=== PATIENT | female | born 1980 | race American Indian/Alaskan Native ===

== ENCOUNTER 2019-05-28 00:14 | Emergency (ER) | payer OTHER ==
[~2019-05-28] VITALS: Ht 157.5 cm; Wt 47.6 kg
[~2019-05-28 00:14] MED LIST: Procardia 10MG CAP PO; Vistaryl 50MG CAP PO
[2019-05-28] MEDS ORDERED: LEVAQUIN500 MG (00:55)
[2019-05-28] MEDS ORDERED: KETO10TA2 (00:55)
== END 2019-05-28 02:23 | disposition home or self-care (01) ==
LOC: ER 00:14
DX: N75.1 Abscess of Bartholin's gland (principal)